=== PATIENT | female | born 1980 | race Caucasian/White ===

== ENCOUNTER 2016-12-10 00:22 | Emergency (ER) | payer BC, MEDICAID ==
[~2016-12-10] VITALS: Ht 167.6 cm; Wt 96.6 kg
[~2016-12-10 00:22] MED LIST: CYCL-181; NAPR-604 PO; PRON100T
[2016-12-10 00:37] VITALS: BP 148/86
== END 2016-12-10 02:26 | disposition home or self-care (01) ==
LOC: ER 00:29
DX: M94.0 Chondrocostal junction syndrome [Tietze] (principal)

== ENCOUNTER 2020-07-17 15:08 | Emergency (ER) | payer BC, MEDICAID ==
[~2020-07-17] VITALS: Ht 167.6 cm; Wt 97.1 kg
[~2020-07-17 15:08] MED LIST changes: -NAPR-604 PO; +NAPR375T27 PO
[2020-07-17] MEDS ORDERED: SODIUM CHLORIDE 0.9% 1,000 ML IV ONE ×2 (15:09)
[2020-07-17 15:15] VITALS: BP 157/84
== END 2020-07-17 16:29 | disposition home or self-care (01) ==
LOC: ER 15:08
DX: K64.9 Unspecified hemorrhoids (principal); K62.5 Hemorrhage of anus and rectum